=== PATIENT | female | born 1965 | race African-American/Black ===

== ENCOUNTER → 2018-08-07 | Emergency (ER) | payer MEDICARE, MEDICAID ==
[~2018-08-07] VITALS: Ht 167.6 cm; Wt 90.7 kg
--- NOTE | 2018-08-07 10:00 | NUR ---
PT BROUGHT IN BY [facility] OFF STRE[address] FOR BILATERAL HIP PAIN
[2018-08-07 10:33] VITALS: BP 140/98
== END | disposition home or self-care (01) ==
LOC: ER 09:40
DX: G89.29 Other chronic pain (principal); M54.5 Low back pain; M25.552 Pain in left hip; M25.551 Pain in right hip; F20.9 Schizophrenia, unspecified; F32.9 Major depressive disorder, single episode, unspecified; Z88.5 Allergy status to narcotic agent; Z86.19 Personal history of other infectious and parasitic diseases; Z59.0 Homelessness
CPT/HCPCS: 99283; A4606; Z7610

== ENCOUNTER 2019-05-07 06:37 | Emergency (ER) | payer MEDICARE, MEDICAID ==
[~2019-05-07] VITALS: Ht 157.5 cm; Wt 97.5 kg
--- NOTE | 2019-05-07 06:51 | NUR ---
ADIEL FROM STREET. TO ER BED 11. AAOX3. NO RESP DISTRESS NOTED. PT IS PRESENTED UNKEPT AND DISHEVELED. C/O GENERALZIED BODY ITCHING AND BURNING. PT REPORTS THAT SHE HAS BEEN HAVING THIS ISSUE FOR A WHILE AND HAVE GONE TO SEVERAL DOCTORS AND DERMATOLIGIST BUT STILL CONTINUES TO HAVE THIS ISSUE. PT SKIN IS NOTED DRY, DIFFUSED REDNESS AND SCAB LIKE DRY SKIN. PT REPORTS THAT SHE LIVES IN [place] AND [place]. AWAITING MD FOR [facility]MIN[facility].
[2019-05-07] MEDS ORDERED: diphenhydrAMINE HCL 50 MG CAPSULE PO ONE (07:00)
[2019-05-07] MEDS ORDERED: predniSONE 10 MG TABLET PO ONE (07:00)
[2019-05-07] MEDS ORDERED: FAMOTIDINE (20 MG) 20 MG TABLET PO ONE (07:00)
[2019-05-07] MEDS ORDERED: EPINEPHRINE (1:1000) MDV 30 MG/30ML VIAL SUBCUT ONE (07:00)
[2019-05-07] MEDS ORDERED: diphenhydrAMINE HCL 50 MG CAPSULE ONE (07:01)
[2019-05-07] MEDS ORDERED: FAMOTIDINE (20 MG) 20 MG TABLET ONE (07:01)
[2019-05-07] MEDS ORDERED: predniSONE 20 MG TABLET ONE (07:01)
[2019-05-07] MEDS ORDERED: EPINEPHRINE (1:1000) 1 MG/ML AMPUL ONE (07:01)
--- NOTE | 2019-05-07 08:08 | NUR ---
Patient discharged to home in stable condition. Written and verbal after care instructions given. Patient verbalizes understanding of instruction.
[2019-05-07 08:10] VITALS: BP 141/82
== END 2019-05-07 08:12 | disposition home or self-care (01) ==
LOC: ER 06:38
DX: L23.9 Allergic contact dermatitis, unspecified cause (principal); G89.29 Other chronic pain; F20.9 Schizophrenia, unspecified; F32.9 Major depressive disorder, single episode, unspecified; Z88.6 Allergy status to analgesic agent
CPT/HCPCS: 96372; 99284; J0171; J7512; Q0163